=== PATIENT | male | born 1950 | race Caucasian/White ===

== ENCOUNTER 2017-12-27 10:08 | Emergency (ER) | payer OTHER, MEDICAID ==
[2017-12-27 10:21] VITALS: BP 124/90; PULSE 78; RESP 16; TEMP 97.7; O2SAT 95
--- NOTE | 2017-12-27 10:35 | EDPHY ---
H & P Stated Complaint: lac x 1 mo R face--becoming more swollen Time Seen by Provider: 12/27/17 10:35 HPI/ROS: HPI: This is a 67-year-old male who presents with Chief Complaint: lac x 1 mo Right face--becoming more swollen Location: Right cheek Quality: Scar tissue Duration: 1 month Signs and Symptoms: No LOC, No bleeding, no radiation, no numbness, no weakness , no tingling, no incontinence, no decreased range of motion, no swelling, no pain Timing: Gradual onset Severity: Mild Context: Patient reports that he accidentally cut his right cheek approximately 1 month ago while he was in [facility]. He reports that he went to the emergency room and had the laceration repair. He had the sutures removed per recommendation. Reports that he has a gradual growth of tissue over the laceration over the last month. Denies any fever/drainage/pain/warmth/ tenderness. Patient is requesting a referral to Plastic surgery to have "the growth" removed. Modifying Factors: None Comment: ROS: see HPI Constitutional: No fever, no chills, no weight loss Eyes: No blurred vision Respiratory: No shortness of breath, no cough Cardiovascular: No chest pain Gastrointestinal: No nausea, no vomiting no diarrhea Genitourinary: No dysuria Extremities: No myalgias Neurologic: No weakness, no numbness Skin: No rashes Hematologic: No bruising, no bleeding MEDICAL/SURGICAL/SOCIAL HISTORY: Medical/Surgical history: ortho surgery multiple-knee and ankle, chronic back pain, Appendectomy Social history: Employed. CONSTITUTIONAL: Extremely well-appearing adult white male, awake and alert, no obvious distress HEENT: Atraumatic and normocephalic, PERRL, EOMI. Tympanic membranes clear. Oropharynx clear, no exudate and moist pink mucosa. Airway patent. No lymphadenopathy. No meningismus. Cardiovascular: Normal S1/S2, regular rate, regular rhythm, without murmur rub or gallop. PULMONARY/CHEST: Symmetrical and nontender. Clear to auscultation bilaterally. Good air movement. No accessory muscle usage. ABDOMEN: Soft, nondistended, nontender, no rebound, no guarding, no peritoneal signs, no masses or organomegaly. No CVAT. EXTREMITIES: 2/2 pulses, strength 5/5, no deformities, no clubbing, no cyanosis or edema. NEUROLOGICAL: no focal neuro deficits. GCS 15. SKIN: Warm and dry, 1 cm keloid noted on right cheek-normal pigmented; no fluctuant; no erythema. no rash. Good capillary refill. Source: Patient Exam Limitations: No limitations - Personal History Current Tetanus/Diphtheria Vaccine: Yes Current Tetanus Diphtheria and Acellular Pertussis (TDAP): Yes Tetanus Vaccine Date: 2012 - Medical/Surgical History Hx Asthma: No Hx Chronic Respiratory Disease: No Hx Diabetes: No Hx Cardiac Disease: No Hx Renal Disease: No Hx Cirrhosis: No Hx Alcoholism: No Hx HIV/AIDS: No Hx Splenectomy or Spleen Trauma: No Other PMH: ortho surgery multiple-knee and ankle, chronic back pain. Appendectomy, - Social History Smoking Status: Current some day smoker Constitutional: Initial Vital Signs Temperature (C) 36.5 C 12/27/17 10:19 Heart Rate 78 12/27/17 10:19 Respiratory Rate 16 12/27/17 10:19 Blood Pressure 124/90 H 12/27/17 10:19 O2 Sat (%) 95 12/27/17 10:19 O2 Delivery Mode Room Air Allergies/Adverse Reactions: No Known Allergies Allergy (Verified 03/25/16 06:26) Home Medications: Medication Instructions Recorded NK [No Known Home Meds] 12/27/17 Medical Decision Making ED Course/Re-evaluation: No signs of neurovascular compromise/tenting of skin/compartment syndrome/ extremities and joints examined above and below area of concern and are neurovascularly intact/cellulitis/abscess. Appears to be a benign lesion. This patient was seen under the supervision of my secondary supervising physician. I evaluated care for this patient independently. Differential Diagnosis: Differential diagnosis includes but is not limited to cyst, lipoma, keloid, cellulitis. Departure - Departure Disposition: Home, Routine, Self-Care Clinical Impression: Keloid Condition: Good Instructions: Scar Revision (DC) Referrals: Roberto Cruz MD [Medical Doctor] - 5-7 days, call for appt.
== END 2017-12-27 10:52 | disposition home or self-care (01) ==
DX: L91.0 Hypertrophic scar (principal); F17.200 Nicotine dependence, unspecified, uncomplicated

== ENCOUNTER 2018-10-25 09:30 | Emergency (ER) | payer OTHER, MEDICAID ==
--- NOTE | 2018-10-25 09:43 | EDPHY ---
H & P Stated Complaint: L chest pain x 2 wks becoming more sharp today with headache Time Seen by Provider: 10/25/18 09:37 HPI/ROS: CHIEF COMPLAINT: Chest pain, headache HISTORY OF PRESENT ILLNESS: The patient presents to the ED with complaints of daily chest pain and headache for the past 2 months. The patient does have a history of traumatic brain injury 6 months ago. The patient denies any history of recent fall or trauma. The patient states the pain in his chest pain is reproducible and is centered on the left anterior chest. The patient denies any fever, pleuritic chest pain or additional acute complaints. The patient has not seen a primary care provider. He takes no regular medications. The patient does not smoke or use recreational drugs. The patient does report he drinks several beers a day. The patient has no complaints of abdominal pain, hematemesis or melena. The patient has been taking ibuprofen without significant improvement of his symptoms. REVIEW OF SYSTEMS: A comprehensive 10 point review of systems is otherwise negative aside from elements mentioned in the history of present illness. Source: Patient Exam Limitations: No limitations - Personal History Tetanus Vaccine Date: 2012 - Medical/Surgical History Hx Asthma: No Hx Chronic Respiratory Disease: No Hx Diabetes: No Hx Cardiac Disease: No Hx Renal Disease: No Hx Cirrhosis: No Hx Alcoholism: No Hx HIV/AIDS: No Hx Splenectomy or Spleen Trauma: No Other PMH: ortho surgery multiple-knee and ankle, chronic back pain. Appendectomy, - Social History Smoking Status: Never smoked - Physical Exam Exam: General Appearance: Alert, no distress Eyes: Pupils equal and round no pallor or injection ENT, Mouth: Mucous membranes moist Respiratory: Tenderness to palpation left anterior chest wall, lungs clear to auscultation bilaterally Cardiovascular: Regular rate and rhythm Gastrointestinal: Abdomen is soft and nontender, no masses, bowel sounds normal Neurological: A&O, normal motor function, normal sensory exam, normal cranial nerves Skin: Warm and dry, no rashes Musculoskeletal: Neck is supple nontender Extremities: symmetrical, full range of motion Psychiatric: Patient is oriented X 3, there is no agitation Constitutional: Initial Vital Signs Temperature (C) 36.5 C 10/25/18 09:33 Heart Rate 75 10/25/18 09:33 Respiratory Rate 18 10/25/18 09:33 Blood Pressure 154/92 H 10/25/18 09:33 O2 Sat (%) 96 10/25/18 09:33 O2 Delivery Mode Room Air Allergies/Adverse Reactions: No Known Allergies Allergy (Verified 03/25/16 06:26) Home Medications: Medication Instructions Recorded Tramadol HCl 50 mg PO TID PRN #20 tablet 10/25/18 Medical Decision Making - Diagnostics EKG Interpretation: EKG: Complete interpretation has been separately recorded in the [facility] archive. Summary impression: Sinus rhythm, rate 65, left axis deviation, no ST segment elevation or depression Imaging Results: Imaging Impressions Chest X-Ray 10/25/18 09:55 Impression: 1. Mild peribronchial thickening suggesting airways disease/bronchitis. 2. Blunting of the left costophrenic angle, possibly related to effusion or atelectasis. 3. Multiple mild compression fractures, age-indeterminate. Head CT 10/25/18 09:56 Impression: No acute intracranial findings. Ruben Franco was notified of these findings by telephone at 10:31 AM on 10/25/2018. ED Course/Re-evaluation: The patient presents to the ED with 2 complaints. The 1st is a daily headache for the past 2 months. The patient is noted to be neurologically intact. He has no meningeal symptoms. The patient was taken for noncontrast head CT scan which demonstrates no evidence of an acute intracranial hemorrhage. Additionally the patient has been bothered by 2 months of anterior chest pain. He has reproducible chest pain on exam. His EKG is normal. The patient's troponin is negative. The patient's laboratory studies are unremarkable. I favor a musculoskeletal cause of chest pain. The patient will be given a prescription for tramadol. I have asked him to schedule an appointment with a primary care provider. He has been referred to our on-call PCP. Differential Diagnosis: Differential diagnosis considered includes acute coronary syndrome, costochondritis, intracranial hemorrhage, intracranial mass, tension headache - Data Points Laboratory Results: Laboratory Results 10/25/18 09:45 10/25/18 09:45 10/25/18 10/25/18 10/25/18 09:51 09:45 09:45 WBC 5.81 10^3/uL 10^3/uL (3.80-9.50) RBC 5.43 10^6/uL 10^6/uL (4.40-6.38) Hgb 17.0 g/dL g/dL (13.7-17.5) Hct 49.7 % % (40.0-51.0) MCV 91.5 fL fL (81.5-99.8) MCH 31.3 pg pg (27.9-34.1) MCHC 34.2 g/dL g/dL (32.4-36.7) RDW 11.9 % % (11.5-15.2) Plt Count 238 10^3/uL 10^3/uL (150-400) MPV 8.5 fL L fL (8.7-11.7) Neut % (Auto) 63.3 % % (39.3-74.2) Lymph % (Auto) 25.8 % % (15.0-45.0) Millard % (Auto) 8.4 % % (4.5-13.0) Eos % (Auto) 1.2 % % (0.6-7.6) Baso % (Auto) 1.0 % % (0.3-1.7) Nucleat RBC Rel Count 0.0 % % (0.0-0.2) Absolute Neuts (auto) 3.67 10^3/uL 10^3/uL (1.70-6.50) Absolute Lymphs (auto) 1.50 10^3/uL 10^3/uL (1.00-3.00) Absolute Monos (auto) 0.49 10^3/uL 10^3/uL (0.30-0.80) Absolute Eos (auto) 0.07 10^3/uL 10^3/uL (0.03-0.40) Absolute Basos (auto) 0.06 10^3/uL 10^3/uL (0.02-0.10) Absolute Nucleated RBC 0.00 10^3/uL 10^3/uL (0-0.01) Immature Gran % 0.3 % % (0.0-1.1) Immature Gran # 0.02 10^3/uL 10^3/uL (0.00-0.10) Sodium 139 mEq/L mEq/L (135-145) Potassium 4.7 mEq/L mEq/L (3.5-5.2) Chloride 105 mEq/L mEq/L (97-110) Carbon Dioxide 26 mEq/l mEq/l (22-31) Anion Gap 8 mEq/L mEq/L (6-14) BUN 16 mg/dL mg/dL (7-23) Creatinine 1.1 mg/dL mg/dL (0.7-1.3) Estimated GFR > 60 Glucose 81 mg/dL mg/dL (70-100) Calcium 9.8 mg/dL mg/dL (8.5-10.4) POC Troponin I 0.00 ng/mL ng/mL (0.00-0.08) Point of Care Test Results: Chemistry 10/25/18 09:51 POC Troponin I 0.00 ng/mL ng/mL (0.00-0.08) Departure - Departure Disposition: Home, Routine, Self-Care Clinical Impression: Headache, Chest pain Condition: Good Instructions: Chest Pain (ED) Additional Instructions: 1. You have been given the number of our on-call primary care provider who would be happy to see you in follow-up. 2. I do recommend following up with Cardiology for further evaluation of your chest pain. You have been given the contact information. 3. Please return to the ED for markedly worsening symptoms or other concerns. 4. Your workup in the emergency department today demonstrates no evidence of a heart attack, bleeding in your head, brain tumor or other explanation for chest pain and headache Referrals: [facility],. [Clinic] - As per Instructions Shelly De La Garza MD [Medical Doctor] - As per Instructions Prescriptions: Tramadol HCl 50 mg PO TID PRN #20 tablet PRN Reason: for pain
[2018-10-25 10:10] LABS: PLATELET COUNT 238 10^3/uL (150-400)
--- NOTE | 2018-10-25 10:37 | CPEKG ---
Test Reason : OPEN Blood Pressure : / mmHG Vent. Rate : 065 BPM Atrial Rate : 064 BPM P-R Int : 136 ms QRS Dur : 092 ms QT Int : 392 ms P-R-T Axes : 041 -52 026 degrees QTc Int : 408 ms Sinus rhythm Left anterior fascicular block Confirmed by Vipul Franco ([id number]) on 10/25/2018 10:36:21 AM Referred By: Confirmed By:Vipul Franco
[2018-10-25 11:06] VITALS: BP 127/82
== END 2018-10-25 11:04 | disposition home or self-care (01) ==
LOC: SUPCPDRO 09:30
DX: R07.9 Chest pain, unspecified (principal); R51 Headache
CPT/HCPCS: 84484-PO

== ENCOUNTER 2018-11-10 14:05 | Emergency (ER) | payer OTHER, MEDICAID ==
[2018-11-10 14:11] VITALS: BP 134/88
--- NOTE | 2018-11-10 14:43 | EDPHY ---
H & P Stated Complaint: Fell 12' landed R side;no LOC;also wants tests results from last ED visit Time Seen by Provider: 11/10/18 14:43 HPI/ROS: HPI CHIEF COMPLAINT: Fall off ladder right hip pain. HISTORY OF PRESENT ILLNESS: 68-year-old male, states he does not have any significant medical history presents emergency room after he was up on his roof fixing a piece of metal to event that was blowing the when. He went to get off the roof and go down his ladder and the wind caught the ladder in him he fell he says 10-12 feet. Landing on his right hip. Patient now complains of right lateral hip pain. He is able to ambulate. He denies head strike or neck pain, denies chest pain or shortness of breath, denies abdominal pain. Main complaint right lateral hip pain. He is able to walk. Patient's main complaint is right lateral hip pain. Denies abdominal pain. Patient denies taking any medications. Patient states he does not have a PCP. Past Medical History: Denies medical history Past Surgical History: Denies surgical history Social History: Denies daily use of drugs alcohol tobacco. Family History: Noncontributory ROS REVIEW OF SYSTEMS: 10 Systems were reviewed and negative with the exception of the elements mentioned in the history of present illness. Exam Constitutional triage nursing summary reviewed, vital signs reviewed, awake/ alert. Eyes normal conjunctivae and sclera, EOMI, PERRLA. HENT normal inspection, atraumatic, moist mucus membranes, no epistaxis, neck supple/ no meningismus, no raccoon eyes. Respiratory clear to auscultation bilaterally, normal breath sounds, no respiratory distress, no wheezing. Cardiovascular rate normal, regular rhythm, no murmur, no edema, distal pulses normal. Gastrointestinal nontender abdomen, soft, non-tender, no rebound, no guarding, normal bowel sounds, no distension, no pulsatile mass. Genitourinary no CVA tenderness. Musculoskeletal right leg: Neurovascular intact with good distal pulse, good cap refill, full range of motion of the right hip but tender palpation over the right hip. no midline vertebral tenderness, full range of motion, no calf swelling, no tenderness of extremities, no meningismus, good pulses, neurovascularly intact. Skin pink, warm, & dry, no rash, skin atraumatic. Neurologic awake, alert and oriented x 3, AAOx3, moves all 4 extremities equally, motor intact, sensory intact, CN II-XII intact, normal cerebellar, normal vision, normal speech. Psychiatric normal mood/affect. Heme/Lymph/Immune no lymphadenopathy. Differential Diagnosis: Includes but is not limited to in a particular order right hip contusion, right hip fracture, pelvis fracture, contusion, soft tissue injury Medical Decision Making: Plan for this patient x-ray right hip and pelvis. Tylenol for pain control. Ice pack. Re-evaluate. Re-evaluation: X-ray of the right hip reviewed negative for acute fracture. X-ray of the right hip reviewed. No evidence of acute fracture. At time of discharge 1635 the patient is able to ambulate well. No difficulty. He is requesting Valium for anxiety. I explained he needs a primary care doctor to follow up with. He was given primary care referral last time he was here. He never followed up. I will give him a very limited supply of ibuprofen 800 mg as well as very limited supply of Valium. Return precautions discussed Source: Patient - Personal History Current Tetanus Diphtheria and Acellular Pertussis (TDAP): Yes Tetanus Vaccine Date: 2012 - Medical/Surgical History Hx Asthma: No Hx Chronic Respiratory Disease: No Hx Diabetes: No Hx Cardiac Disease: No Hx Renal Disease: No Hx Cirrhosis: No Hx Alcoholism: No Hx HIV/AIDS: No Hx Splenectomy or Spleen Trauma: No Other PMH: ortho surgery multiple-knee and ankle, chronic back pain. Appendectomy, - Social History Smoking Status: Never smoked Constitutional: Initial Vital Signs Temperature (C) 36.8 C 11/10/18 14:08 Heart Rate 90 11/10/18 14:08 Respiratory Rate 16 11/10/18 14:08 Blood Pressure 134/88 H 11/10/18 14:08 O2 Sat (%) 95 11/10/18 14:08 O2 Delivery Mode Room Air Allergies/Adverse Reactions: No Known Allergies Allergy (Verified 11/10/18 14:07) Home Medications: Medication Instructions Recorded Diazepam [Valium 5 MG (*)] 5 mg PO TID PRN #5 tab 11/10/18 Ibuprofen [Motrin (*)] 800 mg PO Q6-8PRN #7 tab 11/10/18 Medical Decision Making - Diagnostics Imaging Results: Imaging Impressions Hip X-Ray 11/10/18 14:51 Impression: No evidence for acute osseous abnormality in the right hip. - Data Points Medications Given: Discontinued Medications Acetaminophen (Tylenol) 1,000 mg PO EDNOW ONE Stop: 11/10/18 14:53 Last Admin: 11/10/18 14:58 Dose: 1,000 mg Ibuprofen (Motrin) 800 mg PO EDNOW ONE Stop: 11/10/18 16:19 Last Admin: 11/10/18 16:34 Dose: Not Given Departure - Departure Disposition: Home, Routine, Self-Care Clinical Impression: Hip pain Qualifiers: Laterality: right Qualified Code(s): M25.551 - Pain in right hip Condition: Good Instructions: Hip Pain (ED) Additional Instructions: 1. Please follow up with your primary care doctor Referrals: NONE *PRIMARY CARE P,. [Primary Care Provider] - As per Instructions Prescriptions: Diazepam [Valium 5 MG (*)] 5 mg PO TID PRN #5 tab PRN Reason: Spasms Ibuprofen [Motrin (*)] 800 mg PO Q6-8PRN #7 tab
[2018-11-10] MEDS ORDERED: ACETAMINOPHEN 500 MG TAB PO ONE (14:52)
[2018-11-10] MEDS ORDERED: IBUPROFEN 800 MG TAB PO ONE (16:18)
== END 2018-11-10 16:47 | disposition home or self-care (01) ==
DX: M25.551 Pain in right hip (principal); W11.XXXA Fall on and from ladder, initial encounter; Y93.H9 Activity, other involving exterior property and land maintenance, building and construction; Y92.017 Garden or yard in single-family (private) house as the place of occurrence of the external cause